=== PATIENT | male | born 1955 ===

== ENCOUNTER 2017-10-12 19:20 | Emergency (ER) | payer BC ==
[2017-10-12 19:35] VITALS: BP 152/94
[2017-10-12] MEDS ORDERED: Acetaminophen TAB* 325 MG PO ONE (19:59)
--- NOTE | 2017-10-12 20:01 | UC ---
Romel Foley Natalie, scribed for Corwin Lowery MD on 10/12/17 at 1950 . Throat Pain/Nasal Melecio HPI - HPI Summary HPI Summary: The patient is a 62 y/o M presenting to [facility] with sore throat and sinus congestion/pressure starting ten days ago. His throat isn't currently in pain. Pt additionally c/o fever and productive cough with green mucous. He denies ear pain, SOB, and abnormal BM. - History of Current Complaint Chief Complaint: UCRespiratory Stated Complaint: SINUS CONGESTION Time Seen by Provider: 10/12/17 19:41 Hx Obtained From: Patient Onset/Duration: Sudden Onset, Lasting Days, Still Present Severity: Mild Pain Intensity: 0 Pain Scale Used: 0-10 Numeric Cough: Productive Associated Signs & Symptoms: Positive: Negative - SOB, ear pain, Sinus Discomfort, Fever, Other - cough, normal BM - Allergies/Home Medications Allergies/Adverse Reactions: Allergies Allergy/AdvReac Type Severity Reaction Status Date / Time No Known Allergies Allergy Verified 10/12/17 19:28 Home Medications: Home Medications Ibuprofen [Advil] 800 mg PO Q8HR PRN 10/12/17 [History Confirmed 10/12/17] PMH/Surg Hx/FS Hx/Imm Hx Other Endocrine History: NEGATIVE: diabetes Other Cardiovascular History: NEGATIVE: cardiac disease - Surgical History Surgical History: Yes Surgery Procedure, Year, and Place: Hernia repair x3. Knee surgery 1985 - Family History Known Family History: Negative: Respiratory Disease - Social History Alcohol Use: None Substance Use Type: None Smoking Status (MU): Never Smoked Tobacco Review of Systems Constitutional: Fever ENT: Negative - ear ache Respiratory: Negative - SOB, Cough Gastrointestinal: Other - normal BM All Other Systems Reviewed And Are Negative: Yes Physical Exam Triage Information Reviewed: Yes Vital Signs: Initial Vital Signs Temp 100.7 F 10/12/17 19:28 Pulse 95 10/12/17 19:28 Resp 18 10/12/17 19:28 BP 152/94 10/12/17 19:28 Pulse Ox 96 10/12/17 19:28 Vital Signs Reviewed: Yes ENT: Positive: Pharyngeal erythema, Nasal congestion, TM dull - left, TM red - left, Sinus tenderness. Negative: Tonsillar exudate, Muffled voice, Hoarse voice, Uvula midline Neck: Positive: Nontender Respiratory: Positive: Lungs clear, Normal breath sounds, No respiratory distress Cardiovascular: Positive: RRR, No Murmur Abdomen Description: Positive: Nontender Musculoskeletal: Positive: Strength Intact, ROM Intact, No Edema Neurological: Positive: Muscle Tone Normal Psychological: Positive: Age Appropriate Behavior Skin Exam: Normal Throat Pain/Nasal Course/Dx - Course Course Of Treatment: The patient is a 62 y/o M with sinus congestion, fever, and sore throat starting ten days ago. - Differential Dx/Diagnosis Provider Diagnoses: sinusitis. hypertension. left otitis media Discharge - Sign-Out/Discharge Documenting (check all that apply): Discharge/Admit/Transfer - Discharge Plan Condition: Good Disposition: HOME Prescriptions: Clarithromycin TAB* [Biaxin 500 MG TAB*] 500 mg PO BID #20 tab Patient Education Materials: Sinusitis (ED), Ear Infection (ED), Hypertension ( ED) Referrals: No Primary Care Phys,NOPCP [Primary Care Provider] - [facility] [Outside] - 2 Days - Billing Disposition and Condition Condition: GOOD Disposition: HOME The documentation as recorded by the Romel felipe Natalie accurately reflects the service I personally performed and the decisions made by , Corwin Lowery MD.
== END 2017-10-12 20:10 | disposition home or self-care (01) ==
LOC: UCEAST 19:20
DX: J32.9 Chronic sinusitis, unspecified (principal); I10 Essential (primary) hypertension; H66.92 Otitis media, unspecified, left ear; J02.9 Acute pharyngitis, unspecified
CPT/HCPCS: 87502; 99202; G0463